=== PATIENT | male | born 1940 | race Caucasian/White ===

== ENCOUNTER 2017-12-11 05:15 | Observation (INO) | payer MEDICARE, OTHER ==
[2017-12-11] MEDS ORDERED: Sodium Chloride 0.9% 10 ML Syringe FLUSH PRN ×2 (06:00→13:01)
--- NOTE | 2017-12-11 06:24 | EDM.PDOC ---
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 When he woke up at 3 AM he had left arm weakness. Because of knee pain he's been sleeping in a separate room from his , where the bed is lower and seizure for him to get up and down. He uses a walker to get around because of ongoing pain left knee, where he had a recent revision of a previous replacement. Unable to get up on his own because of his left arm weakness, he called his by calling their landline using his cell phone. He needed considerable help to get to the bathroom because he couldn't use his left arm to hold onto the walker. Last known well was about 12:30 or 1 AM when he was up to go the bathroom in the middle of the night. No weakness of his legs, no vision changes no headache no nausea no chest pain no difficulties breathing. Because of the arm weakness EMS was called. On arrival here his left arm weakness is improving. He's had some neck pain has had an MRI of his neck recently, does have some degenerative changes. Has never had any pain radiating into his arms and does not have any pain tonight in the arm. He does not have any numbness in the arm either. Weakness from the shoulder to the fingers, weakness of the hand umbrella tipper which is improving. At 3 AM he is unable to lift his arm at all, now is able to do some lifting although he still feels weak in the hand and has difficulty controlling movements. No history of similar symptoms - Related Data Allergies Allergy/AdvReac Type Severity Reaction Status Date / Time lisinopril Allergy Cannot Verified 12/11/17 05:27 Remember Home Meds: Home Meds Doxazosin Mesylate 4 mg PO BEDTIME 12/29/13 [History] Naproxen 500 mg PO BID 12/29/13 [History] Simvastatin 20 mg PO DAILY 12/29/13 [History] Past Medical History HEENT History: Reports: Impaired Vision Genitourinary History: Reports: Prostate Disorder Endocrine/Metabolic History: Reports: Diabetes, Type II Hematologic History: Reports: Blood Transfusion(s) - Past Surgical History GI Surgical History: Reports: Colonoscopy, Hernia Repair/Other, Other (See Below ) Other GI Surgeries/Procedures: spleenectomy Musculoskeletal Surgical History: Reports: Knee Replacement, Shoulder Surgery Social & Family History - Tobacco Use Smoking Status *Q: Never Smoker Second Hand Smoke Exposure: No - Caffeine Use Caffeine Use: Reports: Coffee - Alcohol Use Days Per Week of Alcohol Use: 1 Number of Drinks Per Day: 1 Total Drinks Per Week: 1 - Recreational Drug Use Recreational Drug Use: No ED ROS GENERAL - Review of Systems Review Of Systems: See Below Constitutional: Reports: No Symptoms HEENT: Reports: No Symptoms Respiratory: Reports: No Symptoms Cardiovascular: Reports: No Symptoms GI/Abdominal: Reports: No Symptoms : Reports: Other (Nocturia, not new). Denies: Dysuria, Urgency Musculoskeletal: Reports: Neck Pain, Joint Pain (Left knee). Denies: Arm Pain, Hand Pain Skin: Reports: No Symptoms Neurological: Reports: Difficulty Walking (Because of left knee pain and left arm weakness), Weakness (New weakness left arm, continuing weakness left leg), Gait Disturbance. Denies: Confusion, Dizziness, Headache, Numbness, Paresthesia , Syncope, Trouble Speaking, Change in Speech Psychiatric: Reports: No Symptoms Hematologic/Lymphatic: Reports: No Symptoms Immunologic: Reports: No Symptoms ED EXAM, NEURO - Physical Exam Exam: See Below Exam Limited By: No Limitations General Appearance: Alert, No Apparent Distress, Other (Appears well, no difficulty speaking or breathing, color normal, no facial droop) Eye Exam: Bilateral Eye: EOMI, Normal Inspection Ears: Normal External Exam, Hearing Grossly Normal Nose: Normal Inspection, Normal Mucosa Throat/Mouth: Normal Inspection, Normal Oropharynx, Normal Voice Neck: Normal Inspection, Supple. No: Lymphadenopathy (R), Lymphadenopathy (L) Respiratory/Chest: No Respiratory Distress, Lungs Clear, Normal Breath Sounds, No Accessory Muscle Use Cardiovascular: Normal Peripheral Pulses, Regular Rate, Rhythm, No Murmur GI/Abdominal: Normal Bowel Sounds, Soft, Non-Tender, No Organomegaly Neurological: Alert, Normal Mood/Affect, Normal Plantar Flexion, Abnormal Finger to Nose (Dysdiadochokinesis with the left hand), Other (Normal right leg right arm, weakness left leg from previous, weakness left arm which is new,). No: Abnormal Sensation Back Exam: Normal Inspection Extremities: Normal Inspection, Normal Capillary Refill, Limited Range of Motion (Left arm from new weakness left leg from knee pain) Psychiatric: Normal Affect, Normal Mood Skin Exam: Warm, Dry, Intact, Normal Color, No Rash Comments: 77-year-old male with new onset left arm weakness without pain and without numbness. Symptoms are improving. Differential diagnosis includes stroke, TIA, neuropathy and others Course - Vital Signs Last Recorded V/S: Last Vital Signs Temp 35.8 C 12/11/17 05:23 Pulse 63 12/11/17 09:30 Resp 16 12/11/17 09:30 BP 149/73 H 12/11/17 09:30 Pulse Ox 94 L 12/11/17 09:30 - Orders/Labs/Meds Orders: Active Orders 24 hr Category Date Time Status EKG Documentation Completion [RC] ASDIRECTED Care 12/11/17 06:01 Active Peripheral IV Care [RC] . DIRECTED Care 12/11/17 06:01 Active Head wo Cont [CT] Stat Exams 12/11/17 06:00 Ordered Sodium Chloride 0.9% [Saline Flush] Med 12/11/17 06:00 Active 10 ml FLUSH ASDIRECTED PRN Peripheral IV Insertion Adult [OM.PC] Routine Oth 12/11/17 06:00 Ordered EKG 12 Lead [EK] Routine Ther 12/11/17 06:00 Ordered Medication Orders Sodium Chloride (Saline Flush) 10 ml FLUSH ASDIRECTED PRN PRN Reason: Keep Vein Open Last Admin: 12/11/17 06:09 Dose: 10 ml Labs: Laboratory Tests 12/11/17 12/11/17 12/11/17 Range/Units 05:30 05:30 05:30 WBC 8.4 (4.5-11.0) K/uL RBC 4.61 (4.30-5.90) M/uL Hgb 15.4 H (12.0-15.0) g/dL Hct 44.4 (40.0-54.0) % MCV 96 (80-98) fL MCH 33 H (27-31) pg MCHC 35 (32-36) % Plt Count 230 (150-400) K/uL PT 10.5 (9.5-12.0) sec INR 0.98 (0.80-1.20) Sodium 142 (140-148) mmol/L Potassium 4.6 (3.6-5.2) mmol/L Chloride 106 (100-108) mmol/L Carbon Dioxide 28 (21-32) mmol/L Anion Gap 7.8 (5.0-14.0) mmol/L BUN 16 (7-18) mg/dL Creatinine 0.8 (0.8-1.3) mg/dL Est Cr Clr Drug Dosing 70.89 mL/min Estimated GFR (MDRD) > 60 (>60) Glucose 136 H (74-106) mg/dL Calcium 9.1 (8.5-10.1) mg/dL Total Bilirubin 0.4 (0.2-1.0) mg/dL AST 24 (15-37) U/L ALT 19 (12-78) U/L Alkaline Phosphatase 46 (46-116) U/L Troponin I < 0.017 (0.000-0.056) ng/mL Total Protein 7.0 (6.4-8.2) g/dL Albumin 3.7 (3.4-5.0) g/dL Globulin 3.3 (2.3-3.5) g/dL Albumin/Globulin Ratio 1.1 L (1.2-2.2) Urine Color Urine Appearance Urine pH (4.5-8.0) Ur Specific [place] (1.008-1.030) Urine Protein (NEGATIVE) mg/dL Urine Glucose (UA) (NEGATIVE) mg/dL Urine Ketones (NEGATIVE) mg/dL Urine Occult Blood (NEGATIVE) Urine Nitrite (NEGAITVE) Urine Bilirubin (NEGATIVE) Urine Urobilinogen (NORMAL) mg/dL Ur Leukocyte Esterase (NEGATIVE) 12/11/17 Range/Units 06:15 WBC (4.5-11.0) K/uL RBC (4.30-5.90) M/uL Hgb (12.0-15.0) g/dL Hct (40.0-54.0) % MCV (80-98) fL MCH (27-31) pg MCHC (32-36) % Plt Count (150-400) K/uL PT (9.5-12.0) sec INR (0.80-1.20) Sodium (140-148) mmol/L Potassium (3.6-5.2) mmol/L Chloride (100-108) mmol/L Carbon Dioxide (21-32) mmol/L Anion Gap (5.0-14.0) mmol/L BUN (7-18) mg/dL Creatinine (0.8-1.3) mg/dL Est Cr Clr Drug Dosing mL/min Estimated GFR (MDRD) (>60) Glucose (74-106) mg/dL Calcium (8.5-10.1) mg/dL Total Bilirubin (0.2-1.0) mg/dL AST (15-37) U/L ALT (12-78) U/L Alkaline Phosphatase (46-116) U/L Troponin I (0.000-0.056) ng/mL Total Protein (6.4-8.2) g/dL Albumin (3.4-5.0) g/dL Globulin (2.3-3.5) g/dL Albumin/Globulin Ratio (1.2-2.2) Urine Color Yellow Urine Appearance Clear Urine pH 5.0 (4.5-8.0) Ur Specific [place] 1.020 (1.008-1.030) Urine Protein Negative (NEGATIVE) mg/dL Urine Glucose (UA) Normal (NEGATIVE) mg/dL Urine Ketones Negative (NEGATIVE) mg/dL Urine Occult Blood Negative (NEGATIVE) Urine Nitrite Negative (NEGAITVE) Urine Bilirubin Negative (NEGATIVE) Urine Urobilinogen Normal (NORMAL) mg/dL Ur Leukocyte Esterase Small (NEGATIVE) Meds: Medications Generic Name Dose Route Start Last Admin Trade Name Freq PRN Reason Stop Dose Admin Sodium Chloride 10 ml 12/11/17 06:00 12/11/17 06:09 Saline Flush FLUSH 10 ml ASDIRECTED PRN Administration Keep Vein Open Discontinued Medications Generic Name Dose Route Start Last Admin Trade Name Freq PRN Reason Stop Dose Admin Aspirin 325 mg 12/11/17 06:46 12/11/17 06:57 Ecotrin PO 12/11/17 06:47 325 mg ONETIME ONE Administration - Re-Assessments/Exams Free Text/Narrative Re-Assessment/Exam: 12/11/17 06:[address] head negative for any acute changes EKG shows sinus rhythm rate 63, slight left axis otherwise normal Hemoglobin 15.4 but white cell and platelet count normal Troponin negative Renal function normal, lites normal Glucose [address] Esteban, senior clinical consultant at [facility] Patient is outside the window for TPA and besides his NIH score is very low, symptoms involved nondominant side only and are improving so risk of bleeding outweighs any potential benefit of TPA. Because of the low NIH score, he is not a candidate for endovascular procedure either. He recommends stroke workup Aspirin 325 mg by mouth Continues to have weakness of left hand umbrella tipper but he is able to lift his arm against gravity so strength is 4 out of 5 left arm 12/11/17 06:55 Departure - Departure Time of Disposition: 07:24 Disposition: Admitted As Inpatient 67 Condition: Fair Clinical Impression: Left arm weakness - Discharge Information Referrals: Joshua Bates MD [Primary Care Provider] - Forms: ED Department Discharge Care Plan Goals: Pt was admitted for observation <Norah Yung - Last Filed: 12/11/17 11:03> Course - Re-Assessments/Exams Free Text/Narrative Re-Assessment/Exam: 12/11/17 08:56 pt is able to lift and move the arm. He does have known neck problems. He had a recent Mri of the neck. He will have a head angio-MRI. Will obtain the results of the MRI of the neck. 12/11/17 08:58 12/11/17 10:59 Pt had a MRI cta which did not reveal any large vessel occlusions. The Mri did not show any definite stroke. Dr corrigan will admit for observation Departure - Departure Condition: Fair
[2017-12-11] MEDS ORDERED: Aspirin 325 MG Tab.EC PO ONE (06:46)
--- NOTE | 2017-12-11 10:09 | MR ---
Ang Head wo Cont INDICATION: new onset left arm weakness FINDINGS: Anterior, middle, and posterior cerebral arteries are patent. Patent anterior communicating artery. The left and right posterior communicating arteries are hypoplastic or absent, a normal vari ant. No focal stenosis or aneurysm. IMPRESSION: Normal MRA head.
--- NOTE | 2017-12-11 11:14 | PCM.HP ---
H&P History of Present Illness - General Date of Service: 12/11/17 Admit Problem/Dx: Admission Diagnosis/Problem Admission Diagnosis/Problem Weakness Source of Information: Patient, Old Records, Provider, RN Notes Reviewed History Limitations: Reports: No Limitations - History of Present Illness Initial Comments - Free Text/Narative: This patient is a 77-year-old gentleman who presented to the emergency department early this morning because of abrupt onset of left arm weakness. He noted no weakness in the arm when he went to bed but awoke early this morning unable to move his left arm. CT scan of the head was performed in the emergency department and showed no evidence of acute bleed. Findings were reviewed with neurology community health consultant, they did not feel that he was a candidate for thrombolytic therapy or intervention and recommended that he undergo further evaluation here but did not require transfer. He has had a known history of severe degenerative changes in cervical spine for some time. Approximately one month ago he developed abrupt onset of left leg weakness that has gradually improved but is not yet back to baseline. He's been seen and evaluated by a spine surgeon, MRI of his cervical spine was obtained last week. MRI shows evidence of severe spinal stenosis as well as diffuse foraminal narrowing. MR angiogram of the brain was obtained this morning and shows no evidence of significant cerebrovascular disease. His left arm weakness has slowly improved since he has been in the emergency room and he is able to move the arm although it still somewhat clumsy. He denies any other neurologic symptoms other than his ongoing mild left leg weakness. - Related Data Allergies/Adverse Reactions: Allergies Allergy/AdvReac Type Severity Reaction Status Date / Time lisinopril Allergy Cannot Verified 12/11/17 05:27 Remember Home Medications: Home Meds Doxazosin Mesylate 4 mg PO BEDTIME 12/29/13 [History] Naproxen 500 mg PO BID 12/29/13 [History] Simvastatin 20 mg PO DAILY 12/29/13 [History] Past Medical History HEENT History: Reports: Impaired Vision Genitourinary History: Reports: Prostate Disorder Endocrine/Metabolic History: Reports: Diabetes, Type II Hematologic History: Reports: Blood Transfusion(s) - Past Surgical History GI Surgical History: Reports: Colonoscopy, Hernia Repair/Other, Other (See Below ) Other GI Surgeries/Procedures: spleenectomy Musculoskeletal Surgical History: Reports: Knee Replacement, Shoulder Surgery Social & Family History - Tobacco Use Smoking Status *Q: Never Smoker Second Hand Smoke Exposure: No - Caffeine Use Caffeine Use: Reports: Coffee - Alcohol Use Days Per Week of Alcohol Use: 1 Number of Drinks Per Day: 1 Total Drinks Per Week: 1 - Recreational Drug Use Recreational Drug Use: No H&P Review of Systems - Review of Systems: Review Of Systems: See Below General: Denies: Fever, Chills, Malaise, Diaphoresis HEENT: Reports: No Symptoms Pulmonary: Reports: No Symptoms Cardiovascular: Reports: No Symptoms Gastrointestinal: Reports: No Symptoms Genitourinary: Reports: No Symptoms Musculoskeletal: Reports: No Symptoms Skin: Reports: No Symptoms Psychiatric: Reports: No Symptoms Neurological: Reports: Numbness, Weakness. Denies: Confusion, Dizziness, Headache, Seizure, Syncope, Trouble Speaking, Change in Speech Hematologic/Lymphatic: Reports: No Symptoms Immunologic: Reports: No Symptoms Exam - Exam Exam: See Below - Vital Signs Vital Signs: Last Vital Signs Temp 96.5 F 12/11/17 05:23 Pulse 63 12/11/17 09:30 Resp 16 12/11/17 09:30 BP 149/73 H 12/11/17 09:30 Pulse Ox 94 L 12/11/17 09:30 Weight: 186 lb - Exam Quality Assessment: DVT Prophylaxis General: Alert, Oriented, Cooperative, Mild Distress HEENT: Conjunctiva Clear, Hearing Intact, Mucosa Moist & [place], Normal Nasal Septum, Posterior Pharynx Clear, Pupils Equal Neck: Supple, Trachea Midline, +2 Carotid Pulse wo Bruit Lungs: Clear to Auscultation, Normal Respiratory Effort Cardiovascular: Regular Rate, Regular Rhythm, Normal S1, Normal S2. No: Irregular Rhythm, Tachycardia, Systolic Murmur, Diastolic Murmur GI/Abdominal Exam: Soft, Non-Tender, No Organomegaly, No Distention Back Exam: Normal Inspection, Full Range of Motion Extremities: Non-Tender, Pedal Edema Skin: Warm, Dry, Intact Neurological: Cranial Nerves Intact, Reflexes Equal Bilateral, Normal Speech, Sensation Intact. No: Strength Equal Bilateral (Mild weakness left upper and lower extremity) Neuro Extensive - Mental Status: Alert, Oriented x3, Normal Mood/Affect, Normal Cognition, Memory Intact - Patient Data Lab Results Last 24 hrs: Laboratory Results - last 24 hr 12/11/17 12/11/17 12/11/17 Range/Units 05:30 05:30 05:30 WBC 8.4 (4.5-11.0) K/uL RBC 4.61 (4.30-5.90) M/uL Hgb 15.4 H (12.0-15.0) g/dL Hct 44.4 (40.0-54.0) % MCV 96 (80-98) fL MCH 33 H (27-31) pg MCHC 35 (32-36) % Plt Count 230 (150-400) K/uL PT 10.5 (9.5-12.0) sec INR 0.98 (0.80-1.20) Sodium 142 (140-148) mmol/L Potassium 4.6 (3.6-5.2) mmol/L Chloride 106 (100-108) mmol/L Carbon Dioxide 28 (21-32) mmol/L Anion Gap 7.8 (5.0-14.0) mmol/L BUN 16 (7-18) mg/dL Creatinine 0.8 (0.8-1.3) mg/dL Est Cr Clr Drug Dosing 70.89 mL/min Estimated GFR (MDRD) > 60 (>60) Glucose 136 H (74-106) mg/dL Calcium 9.1 (8.5-10.1) mg/dL Total Bilirubin 0.4 (0.2-1.0) mg/dL AST 24 (15-37) U/L ALT 19 (12-78) U/L Alkaline Phosphatase 46 (46-116) U/L Troponin I < 0.017 (0.000-0.056) ng/mL Total Protein 7.0 (6.4-8.2) g/dL Albumin 3.7 (3.4-5.0) g/dL Globulin 3.3 (2.3-3.5) g/dL Albumin/Globulin Ratio 1.1 L (1.2-2.2) Urine Color Urine Appearance Urine pH (4.5-8.0) Ur Specific [employer] (1.008-1.030) Urine Protein (NEGATIVE) mg/dL Urine Glucose (UA) (NEGATIVE) mg/dL Urine Ketones (NEGATIVE) mg/dL Urine Occult Blood (NEGATIVE) Urine Nitrite (NEGAITVE) Urine Bilirubin (NEGATIVE) Urine Urobilinogen (NORMAL) mg/dL Ur Leukocyte Esterase (NEGATIVE) 12/11/17 Range/Units 06:15 WBC (4.5-11.0) K/uL RBC (4.30-5.90) M/uL Hgb (12.0-15.0) g/dL Hct (40.0-54.0) % MCV (80-98) fL MCH (27-31) pg MCHC (32-36) % Plt Count (150-400) K/uL PT (9.5-12.0) sec INR (0.80-1.20) Sodium (140-148) mmol/L Potassium (3.6-5.2) mmol/L Chloride (100-108) mmol/L Carbon Dioxide (21-32) mmol/L Anion Gap (5.0-14.0) mmol/L BUN (7-18) mg/dL Creatinine (0.8-1.3) mg/dL Est Cr Clr Drug Dosing mL/min Estimated GFR (MDRD) (>60) Glucose (74-106) mg/dL Calcium (8.5-10.1) mg/dL Total Bilirubin (0.2-1.0) mg/dL AST (15-37) U/L ALT (12-78) U/L Alkaline Phosphatase (46-116) U/L Troponin I (0.000-0.056) ng/mL Total Protein (6.4-8.2) g/dL Albumin (3.4-5.0) g/dL Globulin (2.3-3.5) g/dL Albumin/Globulin Ratio (1.2-2.2) Urine Color Yellow Urine Appearance Clear Urine pH 5.0 (4.5-8.0) Ur Specific [employer] 1.020 (1.008-1.030) Urine Protein Negative (NEGATIVE) mg/dL Urine Glucose (UA) Normal (NEGATIVE) mg/dL Urine Ketones Negative (NEGATIVE) mg/dL Urine Occult Blood Negative (NEGATIVE) Urine Nitrite Negative (NEGAITVE) Urine Bilirubin Negative (NEGATIVE) Urine Urobilinogen Normal (NORMAL) mg/dL Ur Leukocyte Esterase Small (NEGATIVE) Result Diagrams: 12/11/17 05:30 12/11/17 05:30 *Q Meaningful Use (ADM) - VTE *Q VTE Criteria *Q: - VTE Risk Assess *Q Each Risk Factor Represents 1 Point: Obesity ( BMI > 25 kg/m2) Total Score 1 Point Risk Factors: 1 Each Risk Factor Represents 2 Points: None Total Score 2 Point Risk Factors: 0 Each Risk Factor Represents 3 Points: Age 75 Years or Greater Total Score 3 Point Risk Factors: 3 Each Risk Factor Represents 5 Points: Stroke, Less than 1 Month Total Score 5 Point Risk Factors: 5 Venous Thromboembolism Risk Factor Score *Q: 9 - Stroke *Q Stroke Criteria *Q: - AMI *Q AMI Criteria *Q: Problem List Initiated/Reviewed/Updated: Yes Orders Last 24hrs: Active Orders 24 hr Category Date Time Status Patient Status Manage Transfer [TRANSFER] Routine ADT 12/11/17 11:00 Ordered EKG Documentation Completion [RC] ASDIRECTED Care 12/11/17 06:01 Active Peripheral IV Care [RC] . DIRECTED Care 12/11/17 06:01 Active Head wo Cont [CT] Stat Exams 12/11/17 06:00 Ordered Sodium Chloride 0.9% [Saline Flush] Med 12/11/17 06:00 Active 10 ml FLUSH ASDIRECTED PRN Peripheral IV Insertion Adult [OM.PC] Routine Oth 12/11/17 06:00 Ordered Resuscitation Status Routine Resus Stat 12/11/17 11:02 Ordered EKG 12 Lead [EK] Routine Ther 12/11/17 06:00 Ordered Medication Orders Sodium Chloride (Saline Flush) 10 ml FLUSH ASDIRECTED PRN PRN Reason: Keep Vein Open Last Admin: 12/11/17 06:09 Dose: 10 ml Assessment/Plan Comment:: ASSESSMENT AND PLAN ABRUPT ONSET OF LEFT ARM WEAKNESS-associated with a history of abrupt onset of left leg weakness one month ago with ongoing mild residual weakness in the leg. Arm has improved since admission to the emergency department but is not back to normal. He has a known history of severe cervical spinal stenosis which could be potential cause versus acute CVA. Neurology is been consult and they do not feel that is a candidate for thrombolytic therapy or intervention. -Aspirin 325 mg by mouth daily -MRI of the brain with and without contrast in a.m. -Echocardiogram to rule out cardiac source of emboli -Hold on physical therapy and occupational therapy until results of MRI are available tomorrow. -Neuro checks every 4 hours RECENT LEFT TOTAL KNEE REVISION-stable and progressing well other than left leg weakness that developed approximately one month ago. SEVERE CERVICAL SPINAL STENOSIS -Follow-up with spine surgeon later this week MAINTENANCE ISSUES -DVT prophylaxis; Lovenox 40 mg subcutaneous daily -GI prophylaxis; not indicated -Rodrigues catheter; not indicated -Nutrition; regular diet -Nicotine dependence; not required CODE STATUS-FULL CODE ADMISSION STATUS-patient will be admitted to inpatient status, expect at least a 2 night hospital stay for evaluation and management of problems as outlined above. At the time of this admission I do not reasonably expected evaluation and management of this problem will require more than a 96 hour hospital stay. DISPOSITION-anticipate discharge to home after the hospital stay. PRIMARY CARE PROVIDER-Dr. Bates
[2017-12-11] MEDS ORDERED: Acetaminophen 325 MG Tab PO PRN (13:01)
[2017-12-11] MEDS ORDERED: Ondansetron 4 MG/2 ML SDV IV PRN (13:01)
[2017-12-11] MEDS ORDERED: Polyethylene Glycol 3350 Powder 17 GM Packet PO PRN (13:01)
[2017-12-11] MEDS ORDERED: Docusate Sodium 100 MG Cap PO PRN (13:01)
[2017-12-11] MEDS ORDERED: oxyCODONE 5 MG Tab PO PRN (13:01)
[2017-12-11] MEDS ORDERED: Magnesium Hydroxide 400 MG/5 ML Susp 30 ML Cup PO PRN (13:01)
[2017-12-11] MEDS ORDERED: Naproxen 250 MG Tab PO PRN (14:22)
[2017-12-11] MEDS: Enoxaparin 40 MG/0.4 ML Syringe SUBCUT SCH (14:48)
[2017-12-11] MEDS: Aspirin 325 MG Tab.EC PO SCH (14:49)
[2017-12-11] MEDS ORDERED: Doxazosin 4 MG Tab PO SCH (21:00)
[2017-12-11] MEDS ORDERED: Tamsulosin 0.4 MG (PTOM) PO SCH (21:00)
[2017-12-11] MEDS ORDERED: Naproxen 250 MG Tab PO SCH (21:00)
[2017-12-11] MEDS ORDERED: Simvastatin 20 MG (PTOM) PO SCH (21:00)
[2017-12-11] MEDS: Docusate Sodium 100 MG Cap PO SCH (21:42)
[2017-12-12] MEDS: Aspirin 325 MG Tab.EC PO SCH (08:53)
[2017-12-12] MEDS: Docusate Sodium 100 MG Cap PO SCH (08:54)
--- NOTE | 2017-12-12 14:20 | MR ---
Brain wo Cont HISTORY: Left arm and leg weakness Multiplanar noncontrasted sequences of the brain were obtained. FINDINGS: Midline structures appear intact. No hemosiderin deposition is identified. Diffusion imagin g demonstrates several small foci of increased signal deep in the right cerebral hemisphere adjacent to the body of the right lateral ventricle posterior are seen in the adjacent high frontoparietal cer ebral cortex. These are consistent with foci of acute ischemia. No mass lesion, mass effect, or midline shift is identified. Mild generalized cerebral atrophy is pro bably in keeping with the patient's age. Scattered and confluent areas of increased T2 signal are see n in the deep periventricular bilaterally consistent with chronic microvascular ischemic disease. No abnormal extra-axial fluid collections can be seen. Paranasal sinuses and mastoid air cells appear cl ear. IMPRESSION: Several small foci of restricted diffusion consistent with acute ischemia deep [place] er right cerebral hemisphere adjacent to the body of the right lateral ventricle and also in the high right frontoparietal cortex. These are in a right middle cerebral artery territory distribution. The se could be embolic. No acute hemorrhage or mass is identified.
[2017-12-12] MEDS: Enoxaparin 40 MG/0.4 ML Syringe SUBCUT SCH (15:36)
[2017-12-12 15:46] VITALS: BP 148/66
--- NOTE | 2017-12-12 16:28 | PCM.DCSUM1 ---
Discharge Summary - Hospital Course Brief History: This patient is a 77-year-old gentleman who was admitted through the emergency department for further evaluation of new onset left arm weakness. - Discharge Data Discharge Date: 12/12/17 Discharge Disposition: Home, Self-Care 01 Condition: Stable - Discharge Diagnosis/Problem(s) (1) CVA (cerebral vascular accident) SNOMED Code(s): 684540681 ICD Code: I63.9 - CEREBRAL INFARCTION, UNSPECIFIED Status: Acute Current Visit: Yes (2) Left arm weakness SNOMED Code(s): 016434827 ICD Code: R29.898 - [facility] SYMPTOMS AND SIGNS INVOLVING THE MUSCULOSKELETAL SYSTEM Status: Acute Current Visit: Yes (3) Cervical stenosis of spinal canal Status: Chronic Current Visit: No (4) Type 2 diabetes mellitus SNOMED Code(s): 74224143 ICD Code: E11.9 - TYPE 2 DIABETES MELLITUS WITHOUT COMPLICATIONS Status: Chronic Current Visit: No - Patient Summary/Data Hospital Course: This patient is a 77-year-old gentleman who presented to the emergency department because of abrupt onset of left arm weakness. He noted no weakness in the arm when he went to bed but awoke early on the morning of admission, unable to move his left arm. CT scan of the head was performed in the emergency department and showed no evidence of acute bleed. Findings were reviewed with neurology senior national account manager, they did not feel that he was a candidate for thrombolytic therapy or intervention and recommended that he undergo further evaluation here , but did not require transfer. He has had a known history of severe degenerative changes in cervical spine. Approximately one month ago he developed abrupt onset of left leg weakness that has gradually improved but is not yet back to baseline. He's been seen and evaluated by a spine surgeon, MRI of his cervical spine was obtained last week. MRI shows evidence of severe spinal stenosis as well as diffuse foraminal narrowing. MR angiogram of the brain was obtained in the emergency department and shows no evidence of significant cerebrovascular disease. He was admitted to observation status, transthoracic echocardiogram was obtained which showed normal left ventricular function borderline left atrial enlargement and mild valvular disease. There was no obvious sign of cardiac thrombus, formal report from cardiology is pending. He was started on aspirin 325 mg daily at the time of admission. He was placed on cardiac monitoring and no significant dysrhythmias were noted during his hospital stay. By the following morning he experienced further improvement in his left arm weakness and on direct examination was noted to have only mild weakness at the elbow and wrist. He was noted to have persistent weakness involving his left lower extremity that has been present over the past month. MRI of the brain was obtained with and without contrast and showed several small foci consistent with acute ischemia in the right cerebral hemisphere. These findings were felt to be consistent with possible embolic event. I reviewed the results of the MRI with Dr. Mendes at [facility] in [facility]. He recommended that the patient be continued on aspirin 325 mg daily and transferred for further evaluation with transesophageal echo and neurology consult. I discussed these findings and recommendations with the hospitalist on-call and patient has been accepted for transfer. He will be transferred via [facility] ambulance for further subspecialty evaluation and management - Patient Instructions Diet: Usual Diet as Tolerated Activity: As Tolerated Other/Special Instructions: Please set up outpatient physical therapy consult. Please schedule follow-up appointment with Dr. Bates within one week. Please schedule neurology consult for follow-up of acute CVA. Please schedule transesophageal echocardiogram to rule out cardiac source of emboli causing recent CVA. - Discharge Plan Home Medications: Home Meds Naproxen 500 mg PO BID PRN 12/29/13 [History] Simvastatin 20 mg PO BEDTIME 12/29/13 [History] Ketotifen Fumarate [Alaway] 1 drop EYEBOTH BID 12/11/17 [History] Tamsulosin [Flomax] 1 tab PO BEDTIME 12/11/17 [History] Aspirin [Ecotrin] 325 mg PO DAILY tab.ec 12/12/17 [Rx] Patient Handouts: Stroke Prevention, [id number], Aspirin, ASA oral tablets Referrals: Joshua Bates MD [Primary Care Provider] - - Patient Data Vitals - Most Recent: Last Vital Signs Temp 96.6 F 12/12/17 15:00 Pulse 61 12/12/17 15:00 Resp 18 12/12/17 15:00 BP 148/66 H 12/12/17 15:00 Pulse Ox 98 12/12/17 15:00 Weight - Most Recent: 183 lb 6.405 oz I&O - Last 24 hours: Intake & Output 12/12/17 12/12/17 12/12/17 06:59 14:59 22:59 Intake Total 660 Balance 660 Med Orders - Current: Current Medications Acetaminophen (Tylenol) 650 mg PO Q4H PRN PRN Reason: Pain (Mild 1-3)/fever Aspirin (Ecotrin) 325 mg PO DAILY [facility] Last Admin: 12/12/17 08:53 Dose: 325 mg Docusate Sodium (Colace) 100 mg PO BID [facility] Last Admin: 12/12/17 08:54 Dose: 100 mg Enoxaparin Sodium (Lovenox) 40 mg SUBCUT Q24H [facility] Last Admin: 12/12/17 15:36 Dose: 40 mg Magnesium Hydroxide (Milk Of Magnesia) 30 ml PO Q12H PRN PRN Reason: Constipation Naproxen (Naprosyn) 500 mg PO BID PRN PRN Reason: Pain Ondansetron HCl (Zofran) 4 mg IV Q4H PRN PRN Reason: Nausea/Vomiting Oxycodone HCl (Oxycodone) 5 mg PO Q4H PRN PRN Reason: Pain (moderate 4-6) Polyethylene Glycol (Miralax) 17 gm PO DAILY PRN PRN Reason: Constipation Simvastatin (Zocor) 20 mg PO BEDTIME [facility] Last Admin: 12/11/17 21:41 Dose: 20 mg Sodium Chloride (Saline Flush) 10 ml FLUSH ASDIRECTED PRN PRN Reason: Keep Vein Open Tamsulosin HCl (Flomax) 0.4 mg PO BEDTIME [facility] Last Admin: 12/11/17 21:41 Dose: 0.4 mg Discontinued Medications Aspirin (Ecotrin) 325 mg PO ONETIME ONE Stop: 12/11/17 06:47 Last Admin: 12/11/17 06:57 Dose: 325 mg Docusate Sodium (Colace) 100 mg PO BID PRN PRN Reason: Constipation Doxazosin Mesylate (Cardura) 4 mg PO BEDTIME [facility] Naproxen (Naprosyn) 500 mg PO BID [facility] Sodium Chloride (Saline Flush) 10 ml FLUSH ASDIRECTED PRN PRN Reason: Keep Vein Open Last Admin: 12/11/17 06:09 Dose: 10 ml *Q Meaningful Use (DIS) - VTE *Q VTE Criteria *Q: - Stroke *Q Stroke Criteria *Q: - AMI *Q AMI Criteria *Q:
== END 2017-12-12 17:30 | disposition home or self-care (01) ==
LOC: JP.ED 05:15 → JP.MS 11:00
PROVIDERS: ADMIT Hospitalist; ATTEND Hospitalist
DX: I63.9 Cerebral infarction, unspecified (principal); R29.898 Other symptoms and signs involving the musculoskeletal system; M48.02 Spinal stenosis, cervical region; E11.9 Type 2 diabetes mellitus without complications; Z79.82 Long term (current) use of aspirin; Z79.899 Other long term (current) drug therapy; Z88.8 Allergy status to other drugs, medicaments and biological substances
CPT/HCPCS: 36415; 70450; 70544; 70551; 80053; 81003; 84484; 85027; 85610; 93005; 93010; 93306; 96372; 99285; A9270; G0378; J1650; J7050; 99217; 99220; 99284

== ENCOUNTER 2018-08-08 09:18 | Emergency (ER) | payer MEDICARE, OTHER ==
[2018-08-08 09:21] VITALS: BP 161/68
--- NOTE | 2018-08-08 10:38 | EDM.PDOC ---
ED HPI GENERAL MEDICAL PROBLEM - General Chief Complaint: Neuro Symptoms/Deficits Stated Complaint: MEDICAL VIA [facility] Time Seen by Provider: 08/08/18 10:38 Source of Information: Reports: Patient History Limitations: Reports: No Limitations - History of Present Illness INITIAL COMMENTS - FREE TEXT/NARRATIVE: pt arrived after having a dizzy spell in the middle of the nite that passed. When he got up thuis am he felt like he had some weakness in the left leg. Onset: Today, Other (PT GOT UP THIS AM AND HE FELT LIKE HUIS LEFT LEG WAS DEFINITELY WEAKER. ) Duration: Hour(s): Location: Reports: Lower Extremity, Left Associated Symptoms: Reports: Other ( pT HAD SOME DIZZINESS IN THE MIDDLE OF THE NITE. hE HAD A LOOP RECORDER ON LOOKING AT HIS HEART RHYTHM. hE FELT LIKE THE INCREASED WEAKNESS LASTED FOR ABOUT 1 HOUR. ) - Related Data Allergies Allergy/AdvReac Type Severity Reaction Status Date / Time lisinopril Allergy Swelling Verified 08/08/18 09:32 Home Meds: Home Meds Ketotifen Fumarate [Alaway] 1 drop EYEBOTH BID 12/11/17 [History] Tamsulosin [Flomax] 1 tab PO BEDTIME 12/11/17 [History] Aspirin [Ecotrin] 325 mg PO DAILY tab.ec 12/12/17 [Rx] atorvaSTATin [Lipitor] 40 mg PO BEDTIME 08/08/18 [History] Past Medical History HEENT History: Reports: Impaired Vision Cardiovascular History: Reports: Hypertension Gastrointestinal History: Reports: Chronic Constipation Genitourinary History: Reports: Prostate Disorder Musculoskeletal History: Reports: Osteoarthritis, Other (See Below) Other Musculoskeletal History: cervical stenosis Neurological History: Reports: CVA Endocrine/Metabolic History: Reports: Diabetes, Type II Hematologic History: Reports: Blood Transfusion(s) - Past Surgical History HEENT Surgical History: Reports: Other (See Below) Other HEENT Surgeries/Procedures: eye lid surgery GI Surgical History: Reports: Colonoscopy, Hernia Repair/Other, Other (See Below ) Other GI Surgeries/Procedures: spleenectomy 89 Male Surgical History: Reports: None Endocrine Surgical History: Reports: None Musculoskeletal Surgical History: Reports: Knee Replacement, Shoulder Surgery Social & Family History - Family History Family Medical History: Noncontributory - Tobacco Use Smoking Status *Q: Former Smoker Used Tobacco, but Quit: Yes Month/Year Tobacco Last Used: 50 years - Caffeine Use Caffeine Use: Reports: Coffee - Recreational Drug Use Recreational Drug Use: No ED ROS GENERAL - Review of Systems Review Of Systems: See Below Constitutional: Reports: No Symptoms HEENT: Reports: No Symptoms Respiratory: Reports: No Symptoms Cardiovascular: Reports: No Symptoms Endocrine: Reports: No Symptoms GI/Abdominal: Reports: No Symptoms : Reports: No Symptoms Musculoskeletal: Reports: Other (INCREASED WEAKNESS IN THE LEFT LEG. ) Skin: Reports: No Symptoms Neurological: Reports: Dizziness, Other ( WEAKNESS IN THE LEFT LEG. ) Psychiatric: Reports: No Symptoms ED EXAM, NEURO - Physical Exam Exam: See Below Text/Narrative:: PT ARRIVED WITH A HISTORY OF A STROKE IN nov. hE HAD WEAKNESS IN THE LEFT ARM AND LEFT LEG AT THAT TIME. hE FELT LIKE HE HAD RECURRENT WEAKNESS THIS AM. tHIS WEAKNESS LASTED FOR ABOUT 1 HOUR. Exam Limited By: No Limitations General Appearance: Alert, No Apparent Distress, Other (PUPILS WERE EQUQL AND REACTIVE. ) Ears: Normal TMs Nose: Normal Inspection Throat/Mouth: Normal Inspection Head Exam: Atraumatic Neck: Normal Inspection Respiratory/Chest: No Respiratory Distress Cardiovascular: Regular Rate, Rhythm, Other (PT IS HAVING A FEW pacs) GI/Abdominal: Soft, Non-Tender (Male) Exam: Deferred Rectal (Males) Exam: Deferred Neurological: Alert, Oriented x 3 Back Exam: Normal Inspection Extremities: Normal Inspection Psychiatric: Anxious Course - Vital Signs Last Recorded V/S: Last Vital Signs Temp 35.4 C 08/08/18 09:27 Pulse 62 08/08/18 09:27 Resp 16 08/08/18 09:27 BP 161/68 H 08/08/18 09:27 Pulse Ox 96 08/08/18 09:27 - Orders/Labs/Meds Labs: Laboratory Tests 08/08/18 08/08/18 08/08/18 Range/Units 10:40 10:40 10:40 WBC 9.6 (4.5-11.0) K/uL RBC 4.18 L (4.30-5.90) M/uL Hgb 15.1 H (12.0-15.0) g/dL Hct 41.0 (40.0-54.0) % MCV 98 (80-98) fL MCH 36 H (27-31) pg MCHC 37 H (32-36) % Plt Count 231 (150-400) K/uL Neut % (Auto) 59 (36-66) % Lymph % (Auto) 26 (24-44) % [place] % (Auto) 14 H (2-6) % Eos % (Auto) 1 L (2-4) % Baso % (Auto) 1 (0-1) % Sodium 138 L (140-148) mmol/L Potassium 4.0 (3.6-5.2) mmol/L Chloride 104 (100-108) mmol/L Carbon Dioxide 31 (21-32) mmol/L Anion Gap 7.0 (5.0-14.0) mmol/L BUN 19 H (7-18) mg/dL Creatinine 0.9 (0.8-1.3) mg/dL Est Cr Clr Drug Dosing 62.03 mL/min Estimated GFR (MDRD) > 60 (>60) Glucose 163 H (74-106) mg/dL Calcium 8.9 (8.5-10.1) mg/dL Total Bilirubin 0.7 D (0.2-1.0) mg/dL AST 18 (15-37) U/L ALT 22 (12-78) U/L Alkaline Phosphatase 51 (46-116) U/L Troponin I (0.000-0.056) ng/mL Total Protein 7.3 (6.4-8.2) g/dL Albumin 3.6 (3.4-5.0) g/dL Globulin 3.7 H (2.3-3.5) g/dL Albumin/Globulin Ratio 1.0 L (1.2-2.2) Urine Color Yellow Urine Appearance Clear Urine pH 5.0 (4.5-8.0) Ur Specific [place] 1.020 (1.008-1.030) Urine Protein Negative (NEGATIVE) mg/dL Urine Glucose (UA) 250 H (NEGATIVE) mg/dL Urine Ketones Negative (NEGATIVE) mg/dL Urine Occult Blood Negative (NEGATIVE) Urine Nitrite Negative (NEGAITVE) Urine Bilirubin Negative (NEGATIVE) Urine Urobilinogen Normal (NORMAL) mg/dL Ur Leukocyte Esterase Negative (NEGATIVE) Urine RBC Not seen (0-5) Urine WBC Not seen (0-5) Ur Epithelial Cells Not seen Amorphous Sediment Many Urine Bacteria Not seen Urine Mucus Not seen 08/08/18 Range/Units 10:40 WBC (4.5-11.0) K/uL RBC (4.30-5.90) M/uL Hgb (12.0-15.0) g/dL Hct (40.0-54.0) % MCV (80-98) fL MCH (27-31) pg MCHC (32-36) % Plt Count (150-400) K/uL Neut % (Auto) (36-66) % Lymph % (Auto) (24-44) % [place] % (Auto) (2-6) % Eos % (Auto) (2-4) % Baso % (Auto) (0-1) % Sodium (140-148) mmol/L Potassium (3.6-5.2) mmol/L Chloride (100-108) mmol/L Carbon Dioxide (21-32) mmol/L Anion Gap (5.0-14.0) mmol/L BUN (7-18) mg/dL Creatinine (0.8-1.3) mg/dL Est Cr Clr Drug Dosing mL/min Estimated GFR (MDRD) (>60) Glucose (74-106) mg/dL Calcium (8.5-10.1) mg/dL Total Bilirubin (0.2-1.0) mg/dL AST (15-37) U/L ALT (12-78) U/L Alkaline Phosphatase (46-116) U/L Troponin I < 0.017 (0.000-0.056) ng/mL Total Protein (6.4-8.2) g/dL Albumin (3.4-5.0) g/dL Globulin (2.3-3.5) g/dL Albumin/Globulin Ratio (1.2-2.2) Urine Color Urine Appearance Urine pH (4.5-8.0) Ur Specific [place] (1.008-1.030) Urine Protein (NEGATIVE) mg/dL Urine Glucose (UA) (NEGATIVE) mg/dL Urine Ketones (NEGATIVE) mg/dL Urine Occult Blood (NEGATIVE) Urine Nitrite (NEGAITVE) Urine Bilirubin (NEGATIVE) Urine Urobilinogen (NORMAL) mg/dL Ur Leukocyte Esterase (NEGATIVE) Urine RBC (0-5) Urine WBC (0-5) Ur Epithelial Cells Amorphous Sediment Urine Bacteria Urine Mucus - Re-Assessments/Exams Free Text/Narrative Re-Assessment/Exam: 08/08/18 13:21 PT HAD NORMAL LOOKING LABS. hE DID NOT HAVE DEFINITE WEAKNESS IN THE LEFT LEG THAT COULD BE DEMONSTRATED. hIS CAT SCAN OF THE HEAD SHOWED OLD FINDINGS BUT NOTHING ACUTE. hE DID REMAIN STABLE. dR Beltran, NEUROLOGY WAS CONSULTED AND HE FELT LIKE THERE SHOULD HAVE A mri OF THE HEAD DONE TOMORROW TO SEE IF HE HAD A NEW STROKE. hE DID NOT RECCOMMEND MED CHANGES. tHE PT HAS A LOOP RECORDER IN PLACE/ 08/10/18 19:10 pt did return for a Mri of the head. It did show the possibility of a acute or subacute ischemic change in the rt parietal lobe. pt will be advised to call Dr Penny and have him review the situation. r Departure - Departure Time of Disposition: 13:11 Disposition: Home, Self-Care 01 Condition: Fair Clinical Impression: Left leg weakness, History of CVA (cerebrovascular accident) - Discharge Information Instructions: Weakness, [id number] Referrals: PCP,None [Primary Care Provider] - Forms: ED Department Discharge Additional Instructions: RETURN TOMORROW 08/09/2018 FOR MRI OF BRAIN REGISTER AT 11AM AT HOSPITAL DESK Care Plan Goals: CONTINUE SAME MEDS, RTC TOMORROW FOR A mri OF THE HEAD TO SEE IF HE MIGHT HAVE HAD A RECURRENT STROKE, CONTINUE SAME MEDS, RTC IF FURTHER PROBLEMS. Pt will call Dr Penny and have him review the situation.
--- NOTE | 2018-08-08 11:45 | CT ---
Head wo Cont CLINICAL HISTORY: Left leg weakness and dizziness COMPARISON: MR 12/12/2017 TECHNIQUE: Transverse scans were obtained from the base of the skull through the vertex without IV co ntrast on a multislice, multidetector CT scanner. Auto dosage reduction and iterative reconstruction techniques employed. FINDINGS: There is a small well-demarcated low-attenuation focus in the right basal ganglia. There is some heterogeneous periventricular lucency. There are some small foci of encephalomalacia in the hig h right parietal lobe.. There is no mass effect, hemorrhage, or extraaxial collection. The basal cist erns and sulci over the convexities are prominent. The ventricles are mildly prominent. IMPRESSION: Previous lacunar-type infarct right basal ganglia Small foci of encephalomalacia in the high right parietal lobe consistent with multiple small ischemi c type infarcts Chronic ischemic microvascular changes Moderate atrophy
== END 2018-08-08 14:25 | disposition home or self-care (01) ==
LOC: JP.ED 09:18
DX: M62.81 Muscle weakness (generalized) (principal); I10 Essential (primary) hypertension; E11.9 Type 2 diabetes mellitus without complications; Z88.8 Allergy status to other drugs, medicaments and biological substances; Z79.899 Other long term (current) drug therapy; Z87.891 Personal history of nicotine dependence; Z86.73 Personal history of transient ischemic attack (TIA), and cerebral infarction without residual deficits
CPT/HCPCS: 36415; 70450; 70450-26; 80053; 81001; 84484; 85025; 93005; 99285-25

== ENCOUNTER 2019-01-20 21:31 | Emergency (ER) | payer MEDICARE, OTHER ==
[2019-01-20 21:39] VITALS: BP 152/71
[2019-01-20] MEDS ORDERED: Acetaminophen/oxyCODONE 325-5 MG Tab PO ONE (21:50)
--- NOTE | 2019-01-20 22:07 | EDM.PDOC ---
ED HPI GENERAL MEDICAL PROBLEM - General Chief Complaint: Upper Extremity Injury/Pain Stated Complaint: MEDICAL Time Seen by Provider: 01/20/19 21:45 Source of Information: Reports: Patient, Family, Other () History Limitations: Reports: No Limitations - History of Present Illness INITIAL COMMENTS - FREE TEXT/NARRATIVE: Mal Ascencio is a 78 year old male who presents to the E.D. via ambulance with concerns of right shoulder pain. He has a past history for CVA. His accompanied him. He states 7 hours ago his right shoulder started to cause him pain when he was sitting in his chair. He reports a fall about 1.5 weeks ago. He was alone in the garage and does not quite recall what happened. He thinks he fell due to his left sided weakness but is unsure. He reports hitting his head and is not sure if he lost consciousness. He did not report to the E.D. or the clinic after the fall. He states that his shoulder pain is located mostly anteriorly. He indicates the pain radiates up neck on the right side, posteriorly. He denied chest pain. He notes he used an ambulance today due to his past history of strokes. He has a history of rotator cuff tear, post repair , on the right shoulder. He denies further symptoms at this time. right shoulder Pain Score (Numeric/FACES): 7 - Related Data Allergies Allergy/AdvReac Type Severity Reaction Status Date / Time lisinopril Allergy Swelling Verified 01/20/19 22:06 Home Meds: Home Meds Tamsulosin [Flomax] 0.4 mg PO BEDTIME 12/11/17 [History] atorvaSTATin [Lipitor] 40 mg PO BEDTIME 08/08/18 [History] Apixaban [Eliquis] 5 mg PO BID 11/22/18 [History] Betamethasone Valerate 1 appful TOP ASDIRECTED 11/22/18 [History] Colchicine 0.6 mg PO DAILY 11/28/18 [History] Olopatadine HCl 1 drop EYERT BID 01/20/19 [History] Past Medical History HEENT History: Reports: Impaired Vision Cardiovascular History: Reports: Hypertension Gastrointestinal History: Reports: Chronic Constipation Genitourinary History: Reports: Prostate Disorder Musculoskeletal History: Reports: Osteoarthritis, Other (See Below) Other Musculoskeletal History: cervical stenosis Neurological History: Reports: CVA Endocrine/Metabolic History: Reports: Diabetes, Type II Hematologic History: Reports: Blood Transfusion(s) - Past Surgical History HEENT Surgical History: Reports: Other (See Below) Other HEENT Surgeries/Procedures: eye lid surgery GI Surgical History: Reports: Colonoscopy, Hernia Repair/Other, Other (See Below ) Other GI Surgeries/Procedures: spleenectomy 1957 Male Surgical History: Reports: None Endocrine Surgical History: Reports: None Musculoskeletal Surgical History: Reports: Knee Replacement, Shoulder Surgery Social & Family History - Family History Family Medical History: Noncontributory - Caffeine Use Caffeine Use: Reports: Coffee Review of Systems - Review of Systems Review Of Systems: ROS reveals no pertinent complaints other than HPI. ED EXAM, GENERAL - Physical Exam Exam: See Below Free Text/Narrative:: MSK: Neck: Pain upon palpation of upper trapezius. Limited range of motion due to pain. Right arm: revealed normal inspection, no erythema, lesion or asymmetry present. Pain upon palpation of anterior shoulder. Active range of motion was decreased to due pain. Decreased passive range of motion, past 90 degrees. Positive neers test and empty can test. Sensation intact. Exam Limited By: No Limitations General Appearance: Alert, WD/WN, Mild Distress Eye Exam: Left Eye: Other (subconjunctival hemorrhage ) Ears: Normal External Exam Nose: Normal Inspection Throat/Mouth: Normal Inspection, Normal Lips, Normal Gums, Normal Oropharynx Head: Atraumatic, Normocephalic Neck: Normal Inspection, Supple, Non-Tender Respiratory/Chest: No Respiratory Distress, Lungs Clear, Normal Breath Sounds, No Accessory Muscle Use Cardiovascular: Regular Rate, Rhythm, No Edema Back Exam: Normal Inspection Extremities: Normal Inspection Neurological: Alert, Oriented, Normal Cognition Psychiatric: Normal Affect, Normal Mood Skin Exam: Warm, Intact, Normal Color, No Rash Course - Vital Signs Last Recorded V/S: Last Vital Signs Temp 36.8 C 01/20/19 22:02 Pulse 70 01/20/19 22:02 Resp 16 01/20/19 22:02 BP 152/71 H 01/20/19 22:02 Pulse Ox 100 01/20/19 22:02 - Orders/Labs/Meds Meds: Medications Discontinued Medications Generic Name Dose Route Start Last Admin Trade Name Freq PRN Reason Stop Dose Admin Oxycodone/Acetaminophen 1 tab 01/20/19 21:50 01/20/19 22:03 Percocet 325-5 Mg PO 01/20/19 21:51 1 tab ONETIME ONE Administration Departure - Departure Time of Disposition: 23:13 Disposition: Home, Self-Care 01 Condition: Fair Clinical Impression: Acute shoulder pain Qualifiers: Laterality: right Qualified Code(s): M25.511 - Pain in right shoulder - Discharge Information *PRESCRIPTION DRUG MONITORING PROGRAM REVIEWED*: No *COPY OF PRESCRIPTION DRUG MONITORING REPORT IN PATIENT BELLA: No Instructions: Shoulder Pain Referrals: PCP,None [Primary Care Provider] - Forms: ED Department Discharge Additional Instructions: Wear sling at all times, except when bathing. Acetaminophen OR Percocet as needed for pain relief Follow up with Orthopedics, someone will call you tomorrow to set up an appointment
== END 2019-01-20 23:32 | disposition home or self-care (01) ==
LOC: JP.ED 21:31
DX: M25.511 Pain in right shoulder (principal); I10 Essential (primary) hypertension; Z88.8 Allergy status to other drugs, medicaments and biological substances
CPT/HCPCS: 99283; A9270

== ENCOUNTER 2019-03-13 09:38 | Emergency (ER) | payer MEDICARE, OTHER ==
[2019-03-13 09:58] VITALS: BP 131/66
--- NOTE | 2019-03-13 10:22 | EDM.PDOC ---
ED HPI GENERAL MEDICAL PROBLEM - General Chief Complaint: Cardiovascular Problem Stated Complaint: [facility] Time Seen by Provider: 03/13/19 10:10 Source of Information: Reports: Patient, EMS, Old Records, RN History Limitations: Reports: No Limitations - History of Present Illness INITIAL COMMENTS - FREE TEXT/NARRATIVE: 79 yo male here via EMS for apparent transient low BP. He used a BP cuff that he had previously used on an arm that he had previously used and got a "low BP" reading. He repeated this a few times with similar readings. At first he felt normal with this, later noted some light-headedness. When he reported this to Omer Navarrete he was told to call for an ambulance and to go to the ER. He has not had bleeding, SOB, CP, palpitations, diarrhea, black stools, fever, or vomiting. He is only on Flomax that might lower his BP and this is not new to him. Here in the ER his BP is normal for him in the 130's and he feels normal. He has a cardiology appt this morning here at [facility]. Onset: Today Onset Date: 03/13/19 Onset Time: 09:10 Duration: Minutes:, Resolved Prior to Arrival Location: Reports: Generalized Quality: Reports: Other (no pain) Severity: Mild Improves with: Reports: Other (? 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 (see below) (none) denies Pain Score (Numeric/FACES): 0 - Related Data Allergies Allergy/AdvReac Type Severity Reaction Status Date / Time lisinopril Allergy Swelling Verified 03/13/19 10:11 Home Meds: Home Meds Tamsulosin [Flomax] 0.4 mg PO BEDTIME 12/11/17 [History] atorvaSTATin [Lipitor] 40 mg PO BEDTIME 08/08/18 [History] Apixaban [Eliquis] 5 mg PO BID 11/22/18 [History] Olopatadine HCl 1 drop EYERT BID 01/20/19 [History] Past Medical History HEENT History: Reports: Impaired Vision Cardiovascular History: Reports: Hypertension Gastrointestinal History: Reports: Chronic Constipation Genitourinary History: Reports: Prostate Disorder Musculoskeletal History: Reports: Osteoarthritis, Other (See Below) Other Musculoskeletal History: cervical stenosis Neurological History: Reports: CVA Endocrine/Metabolic History: Reports: Diabetes, Type II Hematologic History: Reports: Blood Transfusion(s) - Infectious Disease History Infectious Disease History: Reports: Chicken Pox - Past Surgical History HEENT Surgical History: Reports: Other (See Below) Other HEENT Surgeries/Procedures: eye lid surgery Cardiovascular Surgical History: Reports: Other (See Below) Other Cardiovascular Surgeries/Procedures: internal heart monitor. GI Surgical History: Reports: Colonoscopy, Hernia Repair/Other, Other (See Below ) Other GI Surgeries/Procedures: spleenectomy 1957 Male Surgical History: Reports: None Endocrine Surgical History: Reports: None Musculoskeletal Surgical History: Reports: Knee Replacement, Shoulder Surgery Social & Family History - Family History Family Medical History: Noncontributory - Caffeine Use Caffeine Use: Reports: Coffee ED ROS GENERAL - Review of Systems Review Of Systems: See Below Constitutional: Reports: No Symptoms HEENT: Reports: No Symptoms Respiratory: Reports: No Symptoms Cardiovascular: Reports: Lightheadedness (mild, now resolved) Endocrine: Reports: No Symptoms GI/Abdominal: Reports: No Symptoms : Reports: No Symptoms Musculoskeletal: Reports: No Symptoms Skin: Reports: No Symptoms Neurological: Reports: No Symptoms ED EXAM, GENERAL - Physical Exam Exam: See Below Exam Limited By: No Limitations General Appearance: Alert, WD/WN, No Apparent Distress Eye Exam: Bilateral Eye: Normal Inspection Ears: Normal External Exam, Normal Canal, Hearing Grossly Normal Ear Exam: Bilateral Ear: Auricle Normal, Canal Normal Nose: Normal Inspection, No Blood Throat/Mouth: Normal Inspection, Normal Lips, Normal Oropharynx, Normal Voice, No Airway Compromise Head: Atraumatic, Normocephalic Neck: Normal Inspection Respiratory/Chest: No Respiratory Distress, Lungs Clear, Normal Breath Sounds, No Accessory Muscle Use Cardiovascular: Regular Rate, Rhythm, No Edema GI/Abdominal: Normal Bowel Sounds, Soft, Non-Tender, No Distention Back Exam: Normal Inspection. No: CVA Tenderness (R), CVA Tenderness (L) Extremities: Normal Inspection, Normal Range of Motion, Non-Tender, No Pedal Edema Neurological: Alert, Oriented, CN II-XII Intact, Normal Cognition, No Motor/ Sensory Deficits Psychiatric: Normal Affect, Normal Mood Skin Exam: Warm, Dry, Intact, Normal Color, No Rash Lymphatic: No Adenopathy Course - Vital Signs Last Recorded V/S: Last Vital Signs Temp 35.1 C L 03/13/19 10:11 Pulse 68 03/13/19 10:11 Resp 16 03/13/19 10:11 BP 131/66 03/13/19 10:11 Pulse Ox 98 03/13/19 10:11 Departure - Departure Time of Disposition: 10:24 Disposition: Home, Self-Care 01 Condition: Good Clinical Impression: Blood pressure instability Referrals: Joshua Bates MD [Primary Care Provider] - Additional Instructions: Keep your cardiology appt. Return as needed.
== END 2019-03-13 10:32 | disposition home or self-care (01) ==
LOC: JP.ED 09:38
DX: R03.1 Nonspecific low blood-pressure reading (principal); I10 Essential (primary) hypertension; E11.9 Type 2 diabetes mellitus without complications; Z86.73 Personal history of transient ischemic attack (TIA), and cerebral infarction without residual deficits; Z79.899 Other long term (current) drug therapy; Z88.8 Allergy status to other drugs, medicaments and biological substances
CPT/HCPCS: 99282; 99284